=== PATIENT | male | born 1965 | race Caucasian/White ===

== ENCOUNTER 2018-06-23 03:58 | Emergency (ER) | payer MEDICARE ==
[~2018-06-23] VITALS: Ht 180.3 cm; Wt 103.0 kg
[~2018-06-23 03:58] MED LIST: ARMO150T4 PO; EZET10TA18 PO; LOSA1TAB25 PO; PROP20TA PO
[2018-06-23 04:00] VITALS: BP 138/80
== END 2018-06-23 04:36 | disposition home or self-care (01) ==
LOC: ED 04:36
DX: T16.2XXA Foreign body in left ear, initial encounter (principal); Z87.891 Personal history of nicotine dependence; W45.8XXA Other foreign body or object entering through skin, initial encounter; Y93.89 Activity, other specified; Y92.89 Other specified places as the place of occurrence of the external cause; Y99.8 Other external cause status
CPT/HCPCS: 69200; 99284

== ENCOUNTER → 2020-07-01 | Outpatient (CLI) | payer OTHER ==
[~2020-07-01] MED LIST changes: -EZET10TA18 PO; +EZET10TA70 PO
== END | disposition home or self-care (01) ==
LOC: CFH 09:44
PROVIDERS: ATTEND Internal Medicine Cardiovascular Disease
DX: Z13.6 Encounter for screening for cardiovascular disorders (principal); I34.0 Nonrheumatic mitral (valve) insufficiency; I11.9 Hypertensive heart disease without heart failure; I25.10 Atherosclerotic heart disease of native coronary artery without angina pectoris; E78.2 Mixed hyperlipidemia; R07.89 Other chest pain
CPT/HCPCS: 75571; 93306; 93356